=== PATIENT | female | born 1955 | race Caucasian/White ===

== ENCOUNTER 2024-02-05 10:44 | Day surgery (SDC) | payer MEDICARE ==
[~2024-02-05] VITALS: Ht 162.6 cm; Wt 101.0 kg
[2024-02-05] MEDS ORDERED: fentaNYL/PF 50MCG/1 ML 2ML syringe IV ONE (11:30)
[2024-02-05] MEDS ORDERED: MIDAZolam 1mg/ml 10ml vial IV ONE (11:30)
[2024-02-05] MEDS ORDERED: normal saline 1000ml 1,000 ML IV SCH (11:30)
[2024-02-05 11:57] VITALS: BP 137/71; PULSE 67; RESP 12; TEMP 97.8; O2SAT 98
[2024-02-05] MEDS ORDERED: CHOL125C6 PO (12:00)
== END 2024-02-05 13:09 | disposition home or self-care (01) ==
LOC: SSTAY O 10:44
PROVIDERS: ATTEND Student in an Organized Health Care Education/Training Program
DX: R93.1 Abnormal findings on diagnostic imaging of heart and coronary circulation (principal); I51.7 Cardiomegaly; E66.9 Obesity, unspecified; F32.A Depression, unspecified; F20.0 Paranoid schizophrenia; Z79.899 Other long term (current) drug therapy; Z68.38 Body mass index [BMI] 38.0-38.9, adult; Z88.2 Allergy status to sulfonamides
CPT/HCPCS: 93314; 93325; J7030; 93308; 93312